=== PATIENT | female | born 1985 | race African-American/Black ===

== ENCOUNTER 2023-09-02 01:55 | Emergency (ER) | payer MEDICARE, MEDICAID ==
[~2023-09-02] VITALS: Ht 165.1 cm; Wt 132.9 kg
[2023-09-02] MEDS ORDERED: BENZLOZ2 MT (02:39)
[2023-09-02] MEDS ORDERED: BENZ200C64 PO (02:39)
[2023-09-02] MEDS ORDERED: AMOX500C2 PO (02:39)
[2023-09-02] MEDS ORDERED: PRED20TA2 PO (02:39)
[2023-09-02] MEDS ORDERED: ALBUAER3 IN (02:39)
[2023-09-02] MEDS ORDERED: CLIN1CAP70 PO (02:42)
[2023-09-02] MEDS: ALBUTEROL SULF 2.5 MG/0.5ML(0.5%) NEB SOLN NEB ONE (02:44)
[2023-09-02] MEDS: IPRATROPIUM BROM 0.5 MG/2.5ML INH SOL NEB ONE (02:44)
[2023-09-02] MEDS: DexAMETHasone SOD PHOS 10MG/1ML VIAL INJ IM ONE (03:04)
[2023-09-02 03:14] VITALS: BP 150/85; PULSE 78; RESP 17; TEMP 98.4; O2SAT 97
== END 2023-09-02 03:16 | disposition home or self-care (01) ==
LOC: ER 01:55
DX: J45.901 Unspecified asthma with (acute) exacerbation (principal); J03.90 Acute tonsillitis, unspecified
CPT/HCPCS: 94640; 96372; 99283; J1100; J7644